=== PATIENT | male | born 1980 | race African-American/Black ===

== ENCOUNTER 2016-12-14 01:49 | Emergency (ER) | payer MEDICAID | END 2016-12-14 02:37 | disposition home or self-care (01) | LOC: D.ER 01:49 | DX: T48.1X5A Adverse effect of skeletal muscle relaxants [neuromuscular blocking agents], initial encounter (principal); Y92.019 Unspecified place in single-family (private) house as the place of occurrence of the external cause ==

== ENCOUNTER 2016-12-18 03:32 | Emergency (ER) | payer MEDICAID | END 2016-12-18 03:35 | disposition left against medical advice (07) | LOC: D.ER 03:32 | DX: Z02.9 Encounter for administrative examinations, unspecified (principal) ==